=== PATIENT | female | born 1990 | race Caucasian/White ===

== ENCOUNTER 2022-01-07 23:21 | Emergency (ER) | payer BC ==
[~2022-01-07] VITALS: Ht 157.5 cm; Wt 59.1 kg
[2022-01-07 23:28] VITALS: BP 112/78; PULSE 96; TEMP 97.3
== END 2022-01-08 00:25 | disposition home or self-care (01) ==
LOC: COL.ER 23:21
DX: T23.251A Burn of second degree of right palm, initial encounter (principal); T31.0 Burns involving less than 10% of body surface; Z28.311 Partially vaccinated for COVID-19; X13.1XXA Other contact with steam and other hot vapors, initial encounter